=== PATIENT | female | born 1960 | race Caucasian/White ===

== ENCOUNTER 2018-08-11 02:05 | Emergency (ER) | payer BC ==
--- OUTSIDE RECORDS SUMMARY | 2018-08-11 02:07 | XMS REPORT | Clinical Summary ---
:1960 Author Organization [facility] Address [address] [place] [address] Care Team Providers Name Role Phone Sharprobert Primary Care Provider Allergies Active Allergy Reactions Severity Noted Date Comments Promethazine 02/29/2016 Reactions: hallucinations Medications No known medications Active Problems Problem Noted Date Pneumonia 03/12/2016 Cervical myelopathy 02/29/2016 Family History Medical History Relation Name Comments Diabetes Father Hypertension Father Diabetes Mother Hypertension Mother Relation Name Status Comments Father Mother Social History Tobacco Use Types Packs/Day Years Used Date Current Every Day Smoker 1 30 Tobacco Cessation: Counseling Given: Yes Alcohol Use Drinks/Week oz/Week Comments Yes 4 Cans of beer 2.4 2x a month Sex Assigned at Date Recorded Not on file Job Start Date Occupation Industry Not on file Not on file Not on file Travel History Travel Start Travel End No recent travel history available. Last Filed Vital Signs Not on file Plan of Treatment Not on file Implants Implanted Type Area Roll Weigher Device Shelf Model / Serial Identifier Expiration / Lot Date Tiss Live Puty Dbm Optium 1cc Tput01 - [id number] Bone N/A: Spine LIFENET: LIFENE 11/03/2018 TPUT01 / Implanted: Qty: 1 on 03/03/2016 by Eusebio Avalos MD Cervical T TRANSPLANT / [id number] Matrix Floseal Hemo W/O Ndl 10 [id number] - [id number] Cement/Fi N/A: Spine BAPTISTE:BIOSCI 07/05/2017 [id number] / Implanted: Qty: 1 on 03/03/2016 by Eusebio Avalos MD ller/Adhe Cervical / sive [id number] Cage,Avs [place]-C 8deg [id number] - [id number] Spine N/A: Spine NANCY YOON [id number] / Implanted: Qty: 1 on 03/03/2016 by Eusebio Avalos MD Cervical / [id number] Scr Bone Self Drl 3.5x10mm [id number] - [id number] Spine N/A: Spine NANCY: STRYKE [id number] / Implanted: Qty: 1 on 03/03/2016 by Eusebio Avalos MD Cervical R SPINE / Scr Bone Self Drl 3.5x12mm [id number] - [id number] Spine N/A: Spine NANCY: STRYKE [id number] / Implanted: Qty: 1 on 03/03/2016 by Eusebio Avalos MD Cervical R SPINE / Nucell Small In Vivo Wound Nc-1000 - [id number] Tissue N/A: Spine NUTECH MED 09/14/2016 NC-1000 / Implanted: Qty: 1 on 03/03/2016 by Eusebio Avalos MD Graft/Sub Cervical / Explanted: stitute [id number] Results Not on fileafter 08/10/2017 Insurance Payer Benefit Plan / Subscriber ID Type Phone Address Group BLUE CROSS/BLUE BCBS PPO POS EPO xxxxxxxxxxxx PPO [phone] [address] [place] [address] (Home) [place] [address] Advance Directives For more information, please contact:[address] [phone] Code Status Date Activated Date Inactivated Comments Full Code 03/12/2016 5:25 AM 03/13/2016 2:31 PM This code status was determined by: Patient Full Code 02/29/2016 4:45 PM 03/04/2016 4:35 PM This code status was determined by: Patient Full Code 02/29/2016 4:43 PM 02/29/2016 4:45 PM This code status was determined by: Patient
[2018-08-11 03:13] LABS: Protime INR 1.02
[2018-08-11 03:14] LABS: Absolute Lymphocytes (CBC) 1.4 K/uL (0.7-4.9); Basophils % 0.1 % (0-1.3); Eosinophils % 0.2 % (0-4.4); Hematocrit 39.3 % (36.0-45.0); Lymphocytes % 7.3 % (15.3-44.8); MPV 9.5 fL (7.6-11.3); Monocytes % 4.7 % (3.3-12.3); RBC Red Blood Cell Count 4.21 M/uL (3.86-4.86)
[2018-08-11 03:25] LABS: ALT/SGPT 15 U/L (12-78); AST/SGOT 12 U/L (15-37); Alkaline Phosphatase 90 U/L (45-117); BUN Blood Urea Nitrogen 6 mg/dL (7-18); Bicarbonate 20 mmol/L (21-32); Bilirubin Direct 0.1 mg/dL (0-0.2); Bilirubin Total 0.3 mg/dL (0.2-1.0); Glucose Level 119 mg/dL (74-106); Magnesium 1.9 mg/dL (1.8-2.4); NT PRO-BNP 161 pg/mL (<125); Potassium 3.5 mmol/L (3.5-5.1); Protein, Total 7.5 g/dL (6.4-8.2); Sodium Level 132 mmol/L (136-145); Troponin (Emerg Dept Use Only) < 0.02 ng/mL (0.0-0.045)
[2018-08-11] MEDS ORDERED: NA CHLORIDE 0.9% 1,000 ML ONE (03:43)
[2018-08-11 03:58] LABS: Barbiturates NEGATIVE (NEGATIVE); Benzodiazepines NEGATIVE (NEGATIVE); Cocaine NEGATIVE (NEGATIVE); METHAMPHETAM NEGATIVE (NEGATIVE); Methadone NEGATIVE (NEGATIVE); Opiates NEGATIVE (NEGATIVE); Phencyclidine NEGATIVE (NEGATIVE); THC Cannibis NEGATIVE (NEGATIVE)
[2018-08-11 04:24] LABS: Urine Blood TRACE (NEG); Urine Glucose NEGATIVE (NEG); Urine Protein NEGATIVE (NEG); Urine Specific Gravity <1.005 (1.005-1.030); Urine pH 5.5 (5.0-7.0)
[2018-08-11 05:15] LABS: Blood Morphology Comment NOT SEEN (NOT SEEN); Platelet Estimate ADEQ
--- NOTE | 2018-08-11 07:12 | ER ---
Nurse's Notes [facility] Name: Alia Blackman Age: 58 yrs Sex: Female : 1960 Arrival Date: 08/11/2018 Time: 02:06 Bed 7 Private MD: Diagnosis: Chest pain. Pneumonia. Leukocytosis Presentation: 08/11 02:33 Presenting complaint: Patient states: pt is breathing very fast in room, talking ch loudly, c/o chest pain. pt begins yelling she cant breathe, breathing quickly. pt states she feels her heart beating fast, then feels very bad. then it goes back to normal and she feels normal. boyfriend states she has been breathing fast, c/o chest pain, and passed out once in his car. states it started around 0145. states she feels very nauseous. Transition of care: patient was not received from another setting of care. Onset of symptoms was August 11, 2018 at 01:45. Risk Assessment: Do you want to hurt yourself or someone else? Patient reports no desire to harm self or others. Initial Sepsis Screen: Does the patient meet any 2 criteria? No. Patient's initial sepsis screen is negative. Does the patient have a suspected source of infection? No. Patient's initial sepsis screen is negative. Care prior to arrival: None. 02:33 Method Of Arrival: Wheelchair 02:33 Acuity: DEVANG 3 ch Triage Assessment: 02:39 General: Appears in no apparent distress. comfortable, Behavior is calm, cooperative, ch appropriate for age. Pain: Complains of pain in left scapular area, right scapular area, left subscapular area, right subscapular area and chest Pain currently is 8 out of 10 on a pain scale. Pain began suddenly. Neuro: No deficits noted. Cardiovascular: Reports chest pain, lightheadedness, palpitations, shortness of breath. Respiratory: Airway is patent Respiratory effort is even, unlabored, Breath sounds are clear bilaterally. Derm: Skin is pink, warm \T\ dry. Historical: - Allergies: 02:39 Phenergan; ch - Home Meds: 02:39 diet pill unknown [Active]; ch - PSHx: 02:39 Hysterectomy; neck sx; ; Tubal ligation; ch - Immunization history:: Adult Immunizations up to date. - Social history:: Smoking status: Patient uses tobacco products, smokes one pack cigarettes per day. Patient uses alcohol, patient/guardian reports recent binge of alcohol consumption. Patient/guardian denies using street drugs. - Ebola Screening: : Patient negative for fever greater than or equal to 101.5 degrees Fahrenheit, and additional compatible Ebola Virus Disease symptoms Patient denies exposure to infectious person Patient denies travel to an Ebola-affected area in the 21 days before illness onset No symptoms or risks identified at this time. Screenin:41 Abuse screen: Denies threats or abuse. Denies injuries from another. Nutritional ch screening: No deficits noted. Tuberculosis screening: No symptoms or risk factors identified. Fall Risk None identified. Assessment: 02:41 Reassessment: Patient appears in no apparent distress at this time. Patient and/or ch family updated on plan of care and expected duration. Pain level reassessed. Patient is alert, oriented x 3, equal unlabored respirations, skin warm/dry/pink. when pt is moved from wheechair to streatcher, pt is speaking rapidly, moving her arms, yelling she cannot breathe. then pt lays down on bed, still upright, resps even and unlabored. pts hand placed over her head and dropped, pt moves her hand so it doesn't hit her in the face. EKG finished, then pt begins moving again, pt states she feels better., Patient states feeling better. Patient states symptoms have improved. 03:04 Reassessment: Patient appears in no apparent distress at this time. Patient and/or ch family updated on plan of care and expected duration. Pain level reassessed. Patient is alert, oriented x 3, equal unlabored respirations, skin warm/dry/pink. Patient states feeling better. Patient states symptoms have improved. 03:57 Reassessment: Patient appears in no apparent distress at this time. Patient and/or ch family updated on plan of care and expected duration. Pain level reassessed. Patient is alert, oriented x 3, equal unlabored respirations, skin warm/dry/pink. pt oob to restroom, returned to bed, tolerated well. pt appears to be sleeping now. 05:21 Reassessment: Patient appears in no apparent distress at this time. Patient and/or ch family updated on plan of care and expected duration. Pain level reassessed. Patient is alert, oriented x 3, equal unlabored respirations, skin warm/dry/pink. physician in room to review finding, and plan of care. pt agrees to CT scan, awaiting pt to go to scan now. Pain: Complains of pain in chest and back Pain does not radiate. 07:00 Reassessment: RECD REPORT FROM CATHERINE YE. 58YO WF P/W CP, ALL CURRENT ORDERS ch COMPLETED. 07:30 Reassessment: PT D/C HOME AMBULATORY WITH FAMILY, DX WITH PNEUMONIA. Vital Signs: 02:39 BP 108 / 68; Pulse 73; Resp 26; Temp 97.8; Pulse Ox 99% on R/A; Weight 86.18 kg; Height ch 5 ft. 5 in. (165.10 cm); Pain 8/10; 03:30 BP 117 / 62; Pulse 66; Resp 12; Temp 98.8; Pulse Ox 99% on R/A; Pain 0/10; ch 05:21 BP 102 / 60; Pulse 63; Resp 15; Temp 99.2; Pulse Ox 97% on R/A; Pain 4/10; ch 07:15 BP 103 / 50; Pulse 58; Resp 17; Temp 98; Pulse Ox 98% ; ch 02:39 Body Mass Index 31.62 (86.18 kg, 165.10 cm) ED Course: 02:06 Patient arrived in ED. am2 02:15 Harrison Delarosa MD is Attending Physician. pkl 02:28 Catherine Perry, CASSI is Primary Nurse. 02:38 Triage completed. 02:39 Arm band placed on left wrist. Patient placed in an exam room, on a stretcher, on research software engineer, on pulse oximetry. 02:40 X-ray completed. Portable x-ray completed in exam room. Patient tolerated procedure mh1 well. 02:41 Patient has correct armband on for positive identification. Placed in gown. Bed in low ch position. Call light in reach. Side rails up X 1. home care assistant on. Pulse ox on. NIBP on. Warm blanket given. 02:41 No provider procedures requiring assistance completed. Inserted saline lock: 18 gauge ch in right antecubital area, using aseptic technique. Blood collected. 02:42 XRAY Chest (1 view) In Process Unspecified. EDMS 03:30 Urine collected: clean catch specimen, clear. Patient maintains SpO2 saturation greater ch than 95% on room air. 06:00 CT Chest W/ Con In Process Unspecified. EDMS 07:32 IV discontinued, intact, bleeding controlled, No redness/swelling at site. Pressure ch dressing applied. Administered Medications: 03:13 Drug: NS 0.9% 1000 ml Route: IV; Rate: 125 ml/hr; Site: right antecubital; 07:25 Drug: LevaQUIN 500 mg Route: PO; 07:25 Follow up: Response: Medication administered at discharge. Outcome: 07:12 Discharge ordered by . pkmatilda 07:32 Discharged to home ambulatory, with family. 07:32 Condition: stable 07:32 Discharge instructions given to patient, Instructed on discharge instructions, follow up and referral plans. medication usage, Demonstrated understanding of instructions, follow-up care, medications, Prescriptions given X 1. 07:33 Patient left the ED. Signatures: Dispatcher [employer] EDCatherine Hoover RN RN ch Lam, Pin, MD MD pkBettye Krishna 1 Gabriella Metzger 2
--- NOTE | 2018-08-11 07:12 | EDPHYS ---
Physician Documentation [facility] Name: Alia Blackman Age: 58 yrs Sex: Female : 1960 Arrival Date: 08/11/2018 Time: 02:06 Bed 7 Private MD: ED Physician Harrison Delarosa HPI: 08/11 02:52 This 58 yrs old Female presents to ER via Wheelchair with complaints of Chest pkl Pain > 30 y/o. 02:52 The patient or guardian reports chest pain that is located primarily in the substernal pkl area. Onset: just prior to arrival. The pain does not radiate. Associated signs and symptoms: Pertinent positives: shortness of breath. The chest pain is described as dull. Historical: - Allergies: 02:39 Phenergan; ch - Home Meds: 02:39 diet pill unknown [Active]; ch - PSHx: 02:39 Hysterectomy; neck sx; ; Tubal ligation; ch - Immunization history:: Adult Immunizations up to date. - Social history:: Smoking status: Patient uses tobacco products, smokes one pack cigarettes per day. Patient uses alcohol, patient/guardian reports recent binge of alcohol consumption. Patient/guardian denies using street drugs. - Ebola Screening: : Patient negative for fever greater than or equal to 101.5 degrees Fahrenheit, and additional compatible Ebola Virus Disease symptoms Patient denies exposure to infectious person Patient denies travel to an Ebola-affected area in the 21 days before illness onset No symptoms or risks identified at this time. ROS: 02:52 Eyes: Negative for injury, pain, redness, and discharge, ENT: Negative for injury, pkl pain, and discharge, Neck: Negative for injury, pain, and swelling. 02:52 Cardiovascular: Positive for chest pain. 02:52 Respiratory: Positive for shortness of breath. 02:52 Abdomen/GI: Negative for abdominal pain, nausea, vomiting, and diarrhea. 02:52 Back: Negative for acute changes. 02:52 : Negative for urinary symptoms. 02:52 MS/extremity: Negative for acute changes. 02:52 Skin: Negative for rash. 02:52 Neuro: Negative for altered mental status. Exam: 02:52 Head/Face: Normocephalic, atraumatic. Eyes: Pupils equal round and reactive to light, pkl extra-ocular motions intact. Lids and lashes normal. Conjunctiva and sclera are non-icteric and not injected. Cornea within normal limits. Periorbital areas with no swelling, redness, or edema. ENT: Nares patent. No nasal discharge, no septal abnormalities noted. Tympanic membranes are normal and external auditory canals are clear. Oropharynx with no redness, swelling, or masses, exudates, or evidence of obstruction, uvula midline. Mucous membranes moist. Neck: Trachea midline, no thyromegaly or masses palpated, and no cervical lymphadenopathy. Supple, full range of motion without nuchal rigidity, or vertebral point tenderness. No Meningismus. Chest/axilla: Normal chest wall appearance and motion. Nontender with no deformity. No lesions are appreciated. Cardiovascular: Regular rate and rhythm with a normal S1 and S2. No gallops, murmurs, or rubs. Normal PMI, no JVD. No pulse deficits. Respiratory: Lungs have equal breath sounds bilaterally, clear to auscultation and percussion. No rales, rhonchi or wheezes noted. No increased work of breathing, no retractions or nasal flaring. Abdomen/GI: Soft, non-tender, with normal bowel sounds. No distension or tympany. No guarding or rebound. No evidence of tenderness throughout. Back: No spinal tenderness. No costovertebral tenderness. Full range of motion. Skin: Warm, dry with normal turgor. Normal color with no rashes, no lesions, and no evidence of cellulitis. MS/ Extremity: Pulses equal, no cyanosis. Neurovascular intact. Full, normal range of motion. Neuro: Awake and alert, GCS 15, oriented to person, place, time, and situation. Cranial nerves II-XII grossly intact. Motor strength 5/5 in all extremities. Sensory grossly intact. Cerebellar exam normal. Normal gait. Vital Signs: 02:39 BP 108 / 68; Pulse 73; Resp 26; Temp 97.8; Pulse Ox 99% on R/A; Weight 86.18 kg; Height ch 5 ft. 5 in. (165.10 cm); Pain 8/10; 03:30 BP 117 / 62; Pulse 66; Resp 12; Temp 98.8; Pulse Ox 99% on R/A; Pain 0/10; ch 05:21 BP 102 / 60; Pulse 63; Resp 15; Temp 99.2; Pulse Ox 97% on R/A; Pain 4/10; ch 07:15 BP 103 / 50; Pulse 58; Resp 17; Temp 98; Pulse Ox 98% ; ch 02:39 Body Mass Index 31.62 (86.18 kg, 165.10 cm) ch MDM: 02:15 Patient medically screened. pkl 07:10 Data reviewed: vital signs, nurses notes, lab test result(s), EKG, radiologic studies, pkl CT scan, plain films. 08/11 02:16 Order name: Basic Metabolic Panel; Complete Time: 03:52 ak1 08/11 02:16 Order name: CBC with Diff; Complete Time: 07:09 ak1 08/11 02:16 Order name: LFT's; Complete Time: 03:52 ak1 08/11 02:16 Order name: Magnesium; Complete Time: 03:52 ak1 08/11 02:16 Order name: NT PRO-BNP; Complete Time: 03:52 ak1 08/11 02:16 Order name: PT-INR; Complete Time: 04:11 ak1 08/11 02:16 Order name: Troponin (emerg Dept Use Only); Complete Time: 03:52 ak1 08/11 02:51 Order name: D-Dimer pk 08/11 02:51 Order name: ETOH Level; Complete Time: 04:11 pkl 08/11 02:51 Order name: UDS; Complete Time: 04:11 pkl 08/11 03:24 Order name: Manual Differential; Complete Time: 07:09 EDMS 08/11 03:46 Order name: D-Dimer; Complete Time: 04:11 EDMS 08/11 03:46 Order name: Urine Dipstick--Ancillary (enter results); Complete Time: 05:12 mt 08/11 02:16 Order name: XRAY Chest (1 view) ak 08/11 02:16 Order name: EKG; Complete Time: 02:18 ak1 08/11 02:16 Order name: Cardiac monitoring; Complete Time: 03:13 ak1 08/11 02:16 Order name: EKG - Nurse/Tech; Complete Time: 03:13 ak1 08/11 02:16 Order name: IV Saline Lock; Complete Time: 03:13 ak1 08/11 02:16 Order name: Labs collected and sent; Complete Time: 03:14 [facility] 08/11 02:16 Order name: O2 Per Protocol; Complete Time: 03:14 [facility] 08/11 02:16 Order name: O2 Sat Monitoring; Complete Time: 03:14 [facility] 08/11 04:14 Order name: CT Chest W/ Con pkl Administered Medications: 03:13 Drug: NS 0.9% 1000 ml Route: IV; Rate: 125 ml/hr; Site: right antecubital; 07:25 Drug: LevaQUIN 500 mg Route: PO; 07:25 Follow up: Response: Medication administered at discharge. Disposition: 08/11/18 07:12 Discharged to Home. Impression: Chest pain. Pneumonia. Leukocytosis. - Condition is Stable. - Prescriptions for Levaquin 500 mg Oral Tablet - take 1 tablet by ORAL route once daily for 10 days; 10 tablet. - Work release form, Medication Reconciliation Form, Thank You Letter, Antibiotic Education, Prescription Opioid Use form. - Follow up: Private Physician; When: 2 - 3 days; Reason: Re-evaluation by your physician. - Problem is new. - Symptoms have improved. Signatures: Dispatcher [employer] EDMS Catherine Perry, RN RN Harrison Whitney MD MD pkMaría Coburn RN RN ak1 Corrections: (The following items were deleted from the chart) 03:42 02:52 ETHANOL+C.LAB.BRZ ordered. EDMD EDMS 03:45 02:52 D-Dimer ordered. EDMD EDMS 07:33 07:12 08/11/2018 07:12 Discharged to Home. Impression: Chest pain. Pneumonia. Leukocytosis. Condition is Stable. Forms are Medication Reconciliation Form, Thank You Letter, Antibiotic Education, Prescription Opioid Use. Follow up: Private Physician; When: 2 - 3 days; Reason: Re-evaluation by your physician. Problem is new. Symptoms have improved. pkl
[2018-08-11] MEDS ORDERED: levoFLOXacin 500 MG TAB ONE (07:34)
[2018-08-11 07:46] VITALS: BP 103/50; TEMP 98; O2SAT 98
--- NOTE | 2018-08-11 08:41 | EKG ---
Test Date: 2018-08-11 Test Time: 02:12:13 Packaging Supervisor: DAYANA MEASUREMENT RESULTS: Intervals: Rate: 85 MD: 178 QRSD: 88 QT: 374 QTc: 445 [place]: P: 20 MD: 178 QRS: 59 T: 58 INTERPRETIVE STATEMENTS: Normal sinus rhythm Possible Anterior infarct, age undetermined Abnormal ECG Compared to ECG 03/11/2016 20:36:04 Myocardial infarct finding now present Right-axis deviation no longer present Electronically Signed On 08-11-18 08:40:54 CDT by Patric Alejo
--- NOTE | 2018-08-11 08:44 | RAD REPORT ---
EXAM DESCRIPTION: RAD - Chest Single View - 08/11/2018 2:44 am CLINICAL HISTORY: Chest pain COMPARISON: March 2016 TECHNIQUE: AP portable chest image was obtained 0240 hours . FINDINGS: Patchy alveolar opacities are present in the lower right lung field is well is in the mid and lower left lung field. In the acute clinical setting this is most likely pneumonia. Heart and vas culature are normal. No measurable pleural effusion and no pneumothorax. No acute bony abnormality se en. No acute aortic findings suspected. IMPRESSION: Right lung base and mid to lower left lung field airspace opacification. In the acute clinical setting this is most likely pneumonia. Pulmonary edema or noninfectious causes of alveolitis should be considered the patient has no infectious exam or lab findings.
--- NOTE | 2018-08-12 11:11 | RAD REPORT ---
EXAM DESCRIPTION: CT - Thorax W/ Con - 08/11/2018 7:02 am CLINICAL HISTORY: The patient is 58 years old and is Female; chest pain, SOB TECHNIQUE: Axial computed tomography images of the chest with intravenous contrast. Sagittal and c oronal reformatted images were created and reviewed. This CT exam was performed using one or more o f the following dose reduction techniques: automated exposure control, adjustment of the mA and/or kV according to patient size, and/or use of iterative reconstruction technique. COMPARISON: No relevant prior studies available. FINDINGS: LUNGS: Subtle scattered groundglass opacities are noted throughout the lungs. PLEURAL SPACE: Unremarkable. No pneumothorax. No significant effusion. HEART: No cardiomegaly. No pericardial effusion. BONES/JOINTS: No acute fracture. SOFT TISSUES: The soft tissues are normal. VASCULATURE: Unremarkable. No thoracic aortic aneurysm. LYMPH NODES: A few shotty mediastinal and hilar lymph nodes are present. IMPRESSION: Scattered mild groundglass opacities. Groundglass opacification is a nonspecific finding and not necessarily indicative of significant pathology. However, in the appropriate clinical settin g, pulmonary edema, pneumonia, or various causes of alveolitis should be considered. Electronically signed by: Mercy Torres MD 08/11/2018 6:12 AM CDT Due to temporary technical issues with the PACS/Fluency reporting system, reports are being signed by the in house radiologist as a courtesy to ensure prompt reporting. The interpreting radiologist is f ully responsible for the content of the report.
== END 2018-08-11 07:33 | disposition home or self-care (01) ==
LOC: ER 02:05
DX: J18.9 Pneumonia, unspecified organism (principal); D72.829 Elevated white blood cell count, unspecified; F17.210 Nicotine dependence, cigarettes, uncomplicated; Z88.8 Allergy status to other drugs, medicaments and biological substances
CPT/HCPCS: 36415; 71045; 71260; 80048; 80076; 80307; 80320; 81003; 83735; 83880; 84484; 85025; 85379; 85610; 93005; 99285; J7030; Q9967

== ENCOUNTER 2020-04-21 14:11 | Emergency (ER) | payer BC, SELFPAY ==
--- OUTSIDE RECORDS SUMMARY | 2020-04-21 14:13 | XMS REPORT | Continuity of Care Document ---
:1960 Author Organization [facility] t Address [address] [place] [address] Care Team Providers Name Role Phone Sharpless Primary Care Physician Emanuel Shepherd MD Attending Clinician Po, [facility] Attending Clinician Unavailable Problems Condition Condition Condition Status Onset Resolution Last Treating Co mments Source Name Details Category Date Date Treatment Clinician Date Pneumonia Pneumonia Disease Active [facility] [place] Cervical Cervical Disease [facility] Allergies, Adverse Reactions, Alerts Allergy Allergy Status Severity Reaction(s) Onset Inactive Treating Comm ents Source Name Type Date Date Clinician Prometha Drug [facility] Reactions [facility] Family History Family Member Diagnosis Comments Start Date Stop Date Source Natural father Diabetes [facility] Natural father Hypertension [facility] Natural mother Diabetes [facility] Natural mother Hypertension [facility] Social History Social Habit Start Date Stop Date Quantity Comments Source Alcohol Comment 2x a month [facility] Sex Assigned [facility] Cigarette 2016-03-12 2016-03-[address] [facility] [facility] - pack-[facility] 00:[facility]00 [facility]00 [facility] Alcohol intake 2016-03-12 2016-03-12 [facility] [facility] (finding) Cigarettes smoked 2016-03-12 2016-03-[address] [facility] - current (pack per 00:00:00 00:00:00 Medical Center day) - Reported Smoking Status Start Date Stop Date Source Current every day smoker 2016-03-12 00:00:00 [facility] - [facility] Medications This patient has no known medications. Procedures This patient has no known procedures. Encounters Start End Encounter Admission Attending Care Care Encounter Source Date/Time Date/Time Type Type Clinicians Facility Department ID 2019-09-02 2019-09-02 [facility] [id number] 00:00:00 00:00:00 [id number] [facility] [id number] Professio [phone] nal [facility] Office Building One 2019-05-02 2019-05-02 Telephone [facility] [id number] 00:00:00 00:00:00 [facility] [id number] [facility] [id number] Professio [phone] [place] [address] Building 2019-05-01 2019-05-01 Telephone [facility] [id number] 00:00:00 00:00:00 [id number] [facility] [id number] Professio [phone] nal [facility] Office Building One 2019-04-28 2019-04-28 Office Pob1, Acute [facility] [id number] 16:41:58 17:50:06 Visit [facility] [id number] [place] [id number] Professio [phone] nal [facility] Office Building One Results This patient has no known results.
--- NOTE | 2020-04-21 17:33 | RAD REPORT ---
EXAM DESCRIPTION: RAD - Tib Fib Left - 04/21/2020 5:12 pm CLINICAL HISTORY: Leg pain, leg trauma several days earlier with persistent pain pattern COMPARISON: None. FINDINGS: No fracture is confirmed. Punctate bone density at the tip of the medial malleolus is doub tful as a fracture. Correlation is needed with the patient's pain symptoms. There is no dislocation o r periosteal reaction noted. No acute or suspicious bony finding. No foreign body or other soft tissue abnormality. Patient has small plantar and Achilles spurs. IMPRESSION: No left tibia or fibula fracture or acute finding seen. Small bone density at the tip of the medial malleolus is not likely an avulsion and not likely signif icant. There is no history indicating localizing pain to the medial ankle joint.
--- NOTE | 2020-04-21 17:35 | RAD REPORT ---
EXAM DESCRIPTION: US - Extremity Venous Uni Ltd - 04/21/2020 5:27 pm CLINICAL HISTORY: Pain;Swelling COMPARISON: None. TECHNIQUE: Real-time sonographic evaluation of the left lower extremity deep venous system was perfo rmed. FINDINGS: Normal compressibility, flow augmentation, phasic flow and spontaneous flow are identified in the left lower extremity common femoral and superficial femoral veins. Echogenic material is pres ent in the left popliteal vein with diminished or absent compression. Posterior tibial vein shows no suspicious finding. IMPRESSION: Acute deep venous thrombosis left popliteal vein.
--- NOTE | 2020-04-21 18:28 | RAD REPORT ---
EXAM DESCRIPTION: CT - Chest For Pe Angio - 04/21/2020 6:13 pm CLINICAL HISTORY: CHEST PAIN COMPARISON: Thorax W/ Con dated 08/11/2018; Thorax W/ Con dated 03/11/2016 TECHNIQUE: Dynamically enhanced 3 mm thick images of the chest were obtained during administration o f approximately 150mL Isovue 370 IV contrast. Coronal and oblique MIP reconstruction images were gene rated and reviewed. Exam utilizes a protocol to evaluate the pulmonary arterial tree. All CT scans are performed using dose optimization technique as appropriate and may include automated exposure control or mA/KV adjustment according to patient size. FINDINGS: No pulmonary emboli are identified. The aorta as imaged shows no acute or suspicious finding. No pericardial thickening or effusion. No dense mass or consolidation identified. Minimal hazy ground-glass opacities are scattered in the l enrike castro. There is no history of acute respiratory symptoms in this is probably atelectasis. A mild alveolar edema is possible. Patient does have cardiomegaly without pericardial effusion. Viral infec tion is unlikely given the absence of any provided symptoms. No pleural effusion or pleural thickenin g. No mediastinal or hilar suspicious masses. Small hilar reactive lymph nodes are seen. No chest wall m asses or abnormal axillary lymphadenopathy. IMPRESSION: No pulmonary emboli identified. Lung parenchymal atelectasis changes are present. Alveolar edema is a possible etiology given the enl arged cardiac size. Alveolar viral infiltrate is unlikely given the absence of any acute respiratory symptom history.
--- NOTE | 2020-04-21 18:37 | ER ---
Nurse's Notes [facility] Name: Alia Blackman Age: 59 yrs Sex: Female : 1960 Arrival Date: 04/21/2020 Time: 14:16 Bed 17 Private MD: Diagnosis: Acute embolism and thrombosis of deep veins of lower extremity Presentation: 04/21 14:26 Chief complaint: Patient states: Tripped while going up the concrete steps 8 days ago. ll1 Pain, swelling, numbness to LLE ([place] area). Gait steady. Coronavirus screen: Client denies travel out of the [place] in the last 14 days. At this time, the client does not indicate any symptoms associated with coronavirus-19. Ebola Screen: Patient denies travel to an Ebola-affected area in the 21 days before illness onset. Initial Sepsis Screen: Does the patient meet any 2 criteria? No. Patient's initial sepsis screen is negative. Does the patient have a suspected source of infection? Yes: Bone or joint infection. Risk Assessment: Do you want to hurt yourself or someone else? Patient reports no desire to harm self or others. Onset of symptoms was April 13, 2020. 14:26 Method Of Arrival: Ambulatory ll1 14:26 Acuity: DEVANG 4 ll1 17:42 Acuity: DEVANG 3 tw2 Historical: - Allergies: 14:28 Phenergan; ll1 - PMHx: 14:28 GERD; ll1 - PSHx: 14:28 Hysterectomy; neck sx; ; Tubal ligation; ll1 - Immunization history:: Flu vaccine is not up to date. - Social history:: Smoking status: Patient reports the use of cigarette tobacco products, smokes one pack cigarettes per day. Screenin:47 Abuse screen: Denies threats or abuse. Nutritional screening: No deficits noted. tw2 Tuberculosis screening: No symptoms or risk factors identified. Fall Risk None identified. Assessment: 16:10 General: Appears in no apparent distress. Behavior is calm, cooperative, appropriate tw2 for age. 16:48 Pain: Complains of pain in left leg. Neuro: Level of Consciousness is awake, alert, tw2 obeys commands, Oriented to person, place, time, situation. Cardiovascular: Patient's skin is warm and dry. Respiratory: Airway is patent Respiratory effort is even, unlabored, Respiratory pattern is regular, symmetrical. GI: No signs and/or symptoms were reported involving the gastrointestinal system. Musculoskeletal: Range of motion: intact in all extremities. 17:01 Reassessment: xray at bedside. tw2 17:08 Reassessment: US at bedside at this time. tw2 17:24 Reassessment: Patient appears in no apparent distress at this time. Patient and/or tw2 family updated on plan of care and expected duration. Pain level reassessed. Patient is alert, oriented x 3, equal unlabored respirations, skin warm/dry/pink. 17:38 Reassessment: provider at bedside at this time with results. tw2 18:48 Reassessment: Patient appears in no apparent distress at this time. Patient and/or tw2 family updated on plan of care and expected duration. Pain level reassessed. Patient is alert, oriented x 3, equal unlabored respirations, skin warm/dry/pink. 18:52 Reassessment: providers LOUIS Lao and ELY Kumar at bedside at this time discussing rx tw2 discount plan. Vital Signs: 14:29 BP 166 / 80; ll1 14:29 Pulse 64; Resp 17; Temp 97.3; Pulse Ox 100% ; Weight 95.25 kg; Height 5 ft. 5 in. ll1 (165.10 cm); Pain 2/10; 17:24 BP 116 / 62; Pulse 55; Resp 17; Pulse Ox 99% on R/A; tw2 18:43 BP 160 / 76; Pulse 61; Resp 17; Pulse Ox 100% on R/A; tw2 14:29 Body Mass Index 34.95 (95.25 kg, 165.10 cm) ll1 ED Course: 14:16 Patient arrived in ED. mr 14:28 Triage completed. ll1 14:28 Arm band placed on. ll1 14:39 Ashu Youngblood PA [facility] 14:39 Chavo Rios MD is Attending Physician. [facility] 16:06 Bed in low position. Call light in reach. Pulse ox on. NIBP on. tw2 16:46 Erika Anna, CASSI is Primary Nurse. tw2 17:12 Tib Fib Left XRAY In Process Unspecified. EDMS 17:26 US Extremity Venous Unilateral Ltd In Process Unspecified. EDMS 17:52 Inserted saline lock: 20 gauge in right antecubital area, using aseptic technique. 4 Blood collected. 18:13 CT Chest For PE Angio In Process Unspecified. EDMS 18:43 No provider procedures requiring assistance completed. tw2 18:48 IV discontinued, intact, bleeding controlled, No redness/swelling at site. Pressure tw2 dressing applied. 18:55 Primary Nurse role handed off by Erika Anna RN [facility] 18:55 Attending Physician role handed off by Chavo Rios MD [facility] 19:01 Erika Anna, RN is Primary Nurse. tw2 Administered Medications: 18:57 Drug: Eliquis (apixaban) 10 mg Route: PO; tw2 19:01 Follow up: Response: No adverse reaction tw2 Outcome: 18:36 Discharge ordered by . [facility] 18:48 Discharged to home ambulatory. tw2 18:48 Condition: stable 18:48 Discharge instructions given to patient, Instructed on discharge instructions, follow up and referral plans. medication usage, Demonstrated understanding of instructions, follow-up care, medications, Prescriptions given X 1. 18:53 Patient left the ED. tw2 19:02 Patient left the ED. tw2 Signatures: Dispatcher [employer] EDMS Ashu Youngblood PA PA [facility] Francesca Milton mr Erika Anna, RN RN 2 Slick Zambrano [facility] David Springer, CASSI RN ll1 Corrections: (The following items were deleted from the chart) 16:49 16:10 General: Appears in no apparent distress. tw2 tw2
--- NOTE | 2020-04-21 18:37 | EDPHYS ---
Physician Documentation [facility] Name: Alia Blackman Age: 59 yrs Sex: Female : 1960 Arrival Date: 04/21/2020 Time: 14:16 Bed 17 Private MD: ED Physician HPI: 04/21 16:39 This 59 yrs old Female presents to ER via Ambulatory with complaints of Fall jmm Injury, Leg Pain. 16:39 Details of fall: The patient fell from an upright position, while walking. Onset: The jmm symptoms/episode began/occurred acutely, 8 day(s) ago. Associated injuries: The patient sustained left lower leg. The patient has not experienced similar symptoms in the past. This is a 59 year old female with a history of GERD that presents to the ED with complaints of left lower leg pain after falling onto concrete steps. Patient not complains of left lower leg swelling with lateral numbness. . Historical: - Allergies: 14:28 Phenergan; ll1 - PMHx: 14:28 GERD; ll1 - PSHx: 14:28 Hysterectomy; neck sx; ; Tubal ligation; ll1 - Immunization history:: Flu vaccine is not up to date. - Social history:: Smoking status: Patient reports the use of cigarette tobacco products, smokes one pack cigarettes per day. ROS: 16:39 Constitutional: Negative for fever, chills, and weight loss, Cardiovascular: Negative jmm for chest pain, palpitations, and edema, Respiratory: Negative for shortness of breath, cough, wheezing, and pleuritic chest pain. 16:39 MS/extremity: Positive for injury or acute deformity, pain, swelling. 16:39 All other systems are negative. Exam: 16:39 Constitutional: This is a well developed, well nourished patient who is awake, alert, jmm and in no acute distress. Head/Face: atraumatic. Eyes: EOMI, no conjunctival erythema appreciated ENT: Moist Mucus Membranes Neck: Trachea midline, Supple Chest/axilla: Normal chest wall appearance and motion. Cardiovascular: Regular rate and rhythm. No edema appreciated Respiratory: Normal respirations, no respiratory distress appreciated Abdomen/GI: Non distended, soft Back: Normal ROM Skin: General appearance color normal 16:39 Musculoskeletal/extremity: ROM: intact in all extremities, swelling noted to the left lower leg, full dorsalis pulse, compartments are soft, NVI. 16:39 Skin: Appearance: Color: normal in color. 16:39 Neuro: Orientation: is normal, Mentation: is normal, Memory: is normal. Vital Signs: 14:29 BP 166 / 80; ll1 14:29 Pulse 64; Resp 17; Temp 97.3; Pulse Ox 100% ; Weight 95.25 kg; Height 5 ft. 5 in. ll1 (165.10 cm); Pain 2/10; 17:24 BP 116 / 62; Pulse 55; Resp 17; Pulse Ox 99% on R/A; tw2 18:43 BP 160 / 76; Pulse 61; Resp 17; Pulse Ox 100% on R/A; tw2 14:29 Body Mass Index 34.95 (95.25 kg, 165.10 cm) ll1 MDM: 16:25 Patient medically screened. [facility] 18:35 Data reviewed: vital signs, nurses notes. Counseling: I had a detailed discussion with prachi the patient and/or guardian regarding: the historical points, exam findings, and any diagnostic results supporting the discharge/admit diagnosis, radiology results, the need for outpatient follow up, to return to the emergency department if symptoms worsen or persist or if there are any questions or concerns that arise at home. ED course: CTA is negative. US positive for DVT. Will treat with eliquis. Advised to follow up with pcp and otherwise given strict return precautions. Patient understood and agrees with the plan of care. . 04/21 16:28 Order name: US Extremity Venous Unilateral Ltd; Complete Time: 17:36 [facility] 04/21 16:28 Order name: Tib Fib Left XRAY; Complete Time: 17:36 [facility] 04/21 17:42 Order name: Saline Lock; Complete Time: 17:52 [facility] 04/21 17:43 Order name: CT Chest For PE Angio; Complete Time: 18:34 [facility] Administered Medications: 18:57 Drug: Eliquis (apixaban) 10 mg Route: PO; tw2 19:01 Follow up: Response: No adverse reaction tw2 Disposition: 04/21/20 18:36 Discharged to Home. Impression: Acute embolism and thrombosis of deep veins of lower extremity. - Condition is Stable. - Discharge Instructions: Deep Vein Thrombosis. - Prescriptions for Eliquis 5 mg Oral tablet - take 1 tablet by ORAL route 2 times per day; 30 tablet. - Medication Reconciliation Form, Thank You Letter, Antibiotic Education, Prescription Opioid Use, Work release form form. - Follow up: Private Physician; When: 2 - 3 days; Reason: Recheck today's complaints, Continuance of care, Re-evaluation by your physician. - Notes: In the first week of taking eliquis please take two tabs by mouth twice a day. Then switch to one tab twice a day. Please see your primary care provider before you run out and to reevaluate you. Please return to the ED if you develop chest pain or shortness of breath. Addendum: 04/22/2020 21:44 Available for consultation at all times. Did not see or evaluate patient unless p s1 otherwise noted. . Signatures: Dispatcher [employer] EDMS Ashu Youngblood PA PA jmm Wise, Tara, RN RN tw2 Chavo Rios MD MD ps1 David Springer RN RN ll1 Corrections: (The following items were deleted from the chart) 04/21 18:53 18:36 04/21/2020 18:36 Discharged to Home. Impression: Acute embolism and thrombosis of tw2 deep veins of lower extremity. Condition is Stable. Forms are Work release form, Medication Reconciliation Form, Thank You Letter, Antibiotic Education, Prescription Opioid Use. Follow up: Private Physician; When: 2 - 3 days; Reason: Recheck today's complaints, Continuance of care, Re-evaluation by your physician. [facility] 19:02 18:53 04/21/2020 18:36 Discharged to Home. Impression: Acute embolism and thrombosis of tw2 deep veins of lower extremity. Condition is Stable. Discharge Instructions: Deep Vein Thrombosis. Prescriptions for Eliquis 5 mg Oral tablet - take 1 tablet by ORAL route 2 times per day; 30 tablet. and Forms are Work release form, Medication Reconciliation Form, Thank You Letter, Antibiotic Education, Prescription Opioid Use. Follow up: Private Physician; When: 2 - 3 days; Reason: Recheck today's complaints, Continuance of care, Re-evaluation by your physician. tw2
[2020-04-21 18:57] VITALS: TEMP 97.3
[2020-04-21 19:00] VITALS: BP 160/76; O2SAT 100
[2020-04-21] MEDS ORDERED: APIXABAN 5 MG TABLET ONE (19:13)
== END 2020-04-21 19:02 | disposition home or self-care (01) ==
LOC: ER 14:11
DX: I82.432 Acute embolism and thrombosis of left popliteal vein (principal); K21.9 Gastro-esophageal reflux disease without esophagitis; F17.210 Nicotine dependence, cigarettes, uncomplicated
CPT/HCPCS: 71275; 82565; 93971; 99284; Q9967